=== PATIENT | male | born 1975 | race Caucasian/White ===

== ENCOUNTER 2017-03-25 11:03 | Emergency (ER) | payer OTHER ==
[~2017-03-25] VITALS: Ht 175.3 cm; Wt 81.6 kg
[~2017-03-25 11:03] MED LIST: NAPROSYN500 M1 PO
--- NOTE | 2017-03-25 11:29 | [facility] Report ---
History of Present Issue Date/Time Seen by Provider 03/25/17 1129 Visit Reason Pt arrived:Walked Presenting Problem:PT STATES DIZZINESS, HEAD CONGESTION, SNEEZING AND EAR PAIN X3 DAYS Location if Accident: Onset of symptoms date/time:/ or onset unknown for:MEDICAL HX UNKNOWN Have you (or family members/close friends) recently traveled outside the [place]? N If Yes, where/when: Have you had exposure to infectious disease within the past month? TB? Other? Specify: c/o cough, chest congestion, mild SOA w/ exertion. Started w/ head congestion and rhinorrhea 3 days ago, "now in my chest". Claritin once yesterday evening but no improvement. Hasn't taken or tried anything else. No known sick contacts. smokes 1ppd. Wheezing last night "until I coughed it clear". Brown/green sputum. Source patient Exam Limitations no limitations ALLERGIES Coded Allergies: No Known Allergies (12/12/16) Home Medications Active Scripts Naproxen (Naprosyn 500MG Tab) 500 MG PO BID #30 TAB Prov: 12/12/16 History Medical History General CAD? No Angina: No UT: No Hypertension? No Hyperlipidemia? No CHF? No DVT? No PE? No COPD? No Asthma? No Anemia? No GERD? No Gastric ulcers? No GI Bleed? No Hernia? No Thyroid Problems? No Hypothyroidism? No CVA? No Seizures? No Diabetes? No Renal Insuffiency? No UTI? No Stones? No BPH? No GB Disease: No Nephritic Syndrome? No Asplenia? No Hepatitis? No Sickle Cell Disease? No Arthritis? No Migraines? No Cataracts? No Glaucoma? No MRSA? No HIV? No TB? No Anxiety? No Depression? No Cancer? No Immunization HX DT/Tetanus Unknown Surgical Hx Previous Surgery?N Family History Family HX Diabetes Yes CAD Yes Hypertension No Hyperlipidemia No Cancer Yes TB No Social History Smoking Hx Smoker: Current Every Day Smoker Tobacco: Yes Type Cigarettes Packs/day 1 1/2 - 2 Packs Alcohol Alcohol: No Review of Systems All Other Systems Reviewed and Negative Constitutional denies fever, denies malaise, other ("just don't feel good") Eyes denies drainage ENT see HPI, ear pain ("pressure initially"), nose discharge, nose congestion. denies: throat pain. Respiratory see HPI Cardiovascular denies chest pain, denies palpitations Gastrointestinal denies no symptoms reported Musculoskeletal denies other (no aches) Skin denies lesions, denies lumps, denies rash Psychiatric/Neurological headache (" more pressure") Physical Exam Vital Signs Vital Signs Date Time Temp Pulse Resp B/P Pulse O2 O2 Flow FiO2 Ox Delivery Rate 03/25 1113 98.2 104 20 143/93 98 General Appearance normal appearance, no apparent distress Eye Exam - bilateral eye normal exam Ear, Nose, Throat normal ENT inspection (x/ nasal congestion) Neck non-tender, supple Respiratory Status Yes: trachea midline, chest symmetrical, non tender chest, non productive cough (worse w/ cough). No: respiratory distress, use of accessory muscles, pain on inspiration, pain on expiration, productive cough. Lung Sounds anterior: lungs clear. posterior: lungs clear. bilateral: lungs clear. Cardiovascular regular rate/rhythm, no peripheral edema, no murmur Neurologic alert, oriented x 3 Mental status normal mood/affect Skin normal color, warm/dry Lymphatic no adenopathy Medical Decision Making LABS/Meds/Orders Pt receiving controlled substance in ED? No Departure Departure Time of Disposition 1137 Disposition DC Home or Self Care(routine) Clinical Impression Primary Impression: Acute bronchitis Qualifiers: Bronchitis organism: unspecified organism Qualified Code: J20.9 - Acute bronchitis, unspecified Secondary Impressions: Tobacco abuse Condition STABLE Referrals Vega Renee MD (Family) IMMEDIATELY for new or worsening symptoms OR no noticeable improvement over the next 48-72 hours. 911 for difficulty breathing. Patient Instructions DI for Acute Bronchitis Additional Instructions STOP SMOKING * start antibiotic today. Be sure to complete entire prescription even if feeling better. * Monitor Temp. Tylenol every 4 hours as needed and/or ibuprofen every 6 hours as needed (as long as your primary care doctor has told you that it is ok to take both) for fever/aches/pain. ER if fever no less than 101 despite tylenol and ibuprofen * humidifier/vaporizer/hot steamy shower * Inhaler every 4-6 hours as needed like we discussed. If unsure how to use it, ask pharmacist to demonstrate how. Should help open airways and improve cough, wheezing, shortness of breath. * Mucinex during the day for your cough and cough suppressant only at night. Be sure to drink lots of water. Insurance may not cover a prescription of mucinex. Might be cheaper to get 400mg tablets and take 2 tablets morning, midday and evening all with lots of water. * Promethazine DM cough syrup will cause drowsiness. Use it only at night. No driving, operating machinery or caring for small children after taking it. * Discussed steroids to help w/ inflammation and therefore cough and wheezing. Pt declined at this time due to in the past, caused worsening of psoriasis. Aware to follow up for new, worsening or persistant symptoms and agrees the need for steroids can be reevaluated at that time. Discharge Counseling Counseled pt/family regarding diagnosis, medications/RX, home care, follow up needs Prescriptions Current Visit Scripts ALBUTEROL (Proventil Hfa Inhaler) 1-2 PUFF IH Q4-6H PRN PRN SOA, wheezing #1 CAN Azithromycin (Zithromycin (Z-FUNMI) 250MG Tab) 250 MG PO DAILY #6 TAB TAKE TWO (2) TABLETS ON DAY 1, THEN ONE (1) TABLET DAY #2 THRU #5 PROMETHAZINE/DEXTROMETHORPHAN (Promethazine-Dm Syrup) 10 ML PO QHSP PRN cough #120 ML will cause drowsiness at 1146
[2017-03-25] MEDS ORDERED: PROVENTIL0.09 MG/A1 IH (11:41)
[2017-03-25] MEDS ORDERED: PROMETHAZINE D118 ML PO (11:41)
[2017-03-25] MEDS ORDERED: ZITHROMAX Z PA250 MG PO (11:41)
[2017-03-25 11:46] VITALS: BP 143/93
== END 2017-03-25 11:46 | disposition home or self-care (01) ==
LOC: UTC 11:03
DX: J20.9 Acute bronchitis, unspecified (principal); F17.210 Nicotine dependence, cigarettes, uncomplicated; Z79.899 Other long term (current) drug therapy